=== PATIENT | female | born 1965 | race Caucasian/White ===

== ENCOUNTER 2021-11-08 09:50 | Emergency (ER) | payer OTHER ==
[2021-11-08] MEDS ORDERED: ONDANSETRON ODT4 MG PO (12:38)
[2021-11-08] MEDS ORDERED: NORCO 5-325 TA1 EACH PO (12:38)
== END 2021-11-08 12:57 | disposition home or self-care (01) ==
LOC: FER 09:50
DX: S52.611A Displaced fracture of right ulna styloid process, initial encounter for closed fracture (principal); Z88.0 Allergy status to penicillin; W01.0XXA Fall on same level from slipping, tripping and stumbling without subsequent striking against object, initial encounter; Y93.89 Activity, other specified; Y92.009 Unspecified place in unspecified non-institutional (private) residence as the place of occurrence of the external cause
CPT/HCPCS: 73110; 73130